=== PATIENT | female | born 1960 | race Caucasian/White ===

== ENCOUNTER 2019-10-10 09:50 | Emergency (ER) | payer BC ==
--- OUTSIDE RECORDS SUMMARY | 2019-10-10 09:55 | XMS REPORT ---
:1960 [facility] Address [address] [place] [address] Dr. Storey [address] [place] [id number] Care Team Providers Name Role Phone Unavailable Unavailable Unavailable Problems This patient has no known problems. Allergies, Adverse Reactions, Alerts This patient has no known allergies or adverse reactions. Medications This patient has no known medications.
--- NOTE | 2019-10-10 10:43 | RAD REPORT ---
EXAM DESCRIPTION: CT - Ct Stroke Brain Wo Cont - 10/10/2019 10:27 am CLINICAL HISTORY: stroke protocol CVA symptomology COMPARISON: No comparisons TECHNIQUE: All CT scans are performed using dose optimization technique as appropriate and may inclu de automated exposure control or mA/KV adjustment according to patient size. FINDINGS: No intracranial hemorrhage, hydrocephalus or extra-axial fluid collection.There is a small 7 x 3 mm area of diminished density seen adjacent to the right frontal horn likely representing suba cute lacunar infarct. No midline shift. The paranasal sinuses and mastoids are clear. The calvarium is intact. IMPRESSION: Suspected small 7 mm subacute lacunar infarct adjacent to the right frontal horn. No ac [place] intracranial hemorrhage suspected. The findings were discussed with Derek Longo in the ER on 10/10/2019 at 10:38 a.m. by telephone.
[2019-10-10 10:50] LABS: Absolute Lymphocytes (CBC) 3.3 K/uL (0.7-4.9); Basophils % 0.7 % (0-1.3); Hematocrit 43.1 % (36.0-45.0); MPV 8.8 fL (7.6-11.3); RBC Red Blood Cell Count 4.71 M/uL (3.86-4.86)
[2019-10-10 10:51] LABS: Protime INR 0.89
[2019-10-10 11:04] LABS: Potassium 3.8 mmol/L (3.5-5.1)
--- NOTE | 2019-10-10 11:07 | RAD REPORT ---
EXAM DESCRIPTION: RAD - Chest Single View - 10/10/2019 10:55 am CLINICAL HISTORY: loss of vision in right eye, trouble speaking Chest pain. COMPARISON: CHEST PA AND LAT 2 VIEW dated 10/02/2013; CHEST SINGLE VIEW dated 07/01/2012 FINDINGS: Portable technique limits examination quality. The lungs are grossly clear. The heart is normal in size. No displaced fractures. IMPRESSION: No acute intrathoracic process suspected.
--- NOTE | 2019-10-10 14:24 | RAD REPORT ---
EXAM DESCRIPTION: MRI - Brain W/Wo Cont - 10/10/2019 2:02 pm CLINICAL HISTORY: Aphasia, stroke-like symptoms COMPARISON: None. TECHNIQUE: Sagittal and axial T1-weighted images were obtained. Axial PD/heavily T2-weighted and T2- FLAIR images were obtained along with axial DWI/ADC mapping sequences. Coronal heavily T2 weighted s equence obtained. Axial and coronal post-contrast T1-weighted images were also obtained. A ml Multi abdullahi contrast following utilized. FINDINGS: No intracranial hemorrhage, mass or acute infarction. There is no edema or shift of midli ne structures. No extra-axial fluid collections. Turner-matter/white matter junction is preserved. Sig nal voids are seen as a normal finding in the major intracranial vessels. No cortical edema or sulcal effacement. No measurable atrophy changes. Ventricles are normal. Patient does have multiple sites of hyperintense T2/IR signal scattered in the cerebral white matter. This i s slightly more prominent the left cerebral hemisphere. This is typical for chronic ischemic change t he would be prominent for the patient's age. Migraine headache or vasculitis etiologies would be poss ible. Demyelinization is possible but not typical. Post-contrast images show normal enhancement. No dural thickening. Mastoid air cells and paranasal sinuses are clear. IMPRESSION: No acute infarction changes present. No hemorrhage, mass or acute intracranial finding. Numerous areas of hyperintense abnormal signal in the cerebral white matter. This is most commonly ch ronic ischemic change with severity greater than expected for patient age.
--- NOTE | 2019-10-10 14:35 | EDPHYS ---
Physician Documentation [facility] Name: Cheryl Dickerson Age: 58 yrs Sex: Female : 1960 Arrival Date: 10/10/2019 Time: 09:52 Bed 25 Private MD: ED Physician Edinson Garcia HPI: 10/10 11:17 This 58 yrs old Female presents to ER via Wheelchair with complaints of ma2 Vision Problem, High Blood Pressure. 11:17 The patient has elevated blood pressure and discovered this at home. Onset: The ma2 symptoms/episode began/occurred suddenly, 1 hour(s) ago. Associated signs and symptoms: Pertinent negatives: headache, nausea, visual changes, vomiting. Severity of symptoms: At its worst the blood pressure was mild, in the emergency department the blood pressure is now normal. The blood pressure problem is resolved. The patient has not experienced similar symptoms in the past. she has sudden visual disturbance of left eye, she describes as if she was looking at a light, lasted for 30 min then resolved. she is now back to normal with no sympotms . Historical: - Allergies: 10:17 Hydrocodone-Acetaminophen; iw - Home Meds: 10:17 rosuvastatin 5 mg oral tab 1 tab once daily [Active]; valsartan 160 mg oral tab 1 tab iw once daily [Active]; Metformin Oral [Active]; nadolol oral oral [Active]; Lexapro Oral [Active]; - PMHx: 10:17 Hyperlipidemia; Hypertension; Endometrosis; iw - PSHx: 10:17 Hernia repair; ankle; iw - Immunization history:: Adult Immunizations. - Coronavirus screen:: The patient has NOT traveled to [place], [place], or [place] in the past 14 days. Proceed with normal triage process as indicated. - Social history:: Patient/guardian denies using alcohol, street drugs, The patient lives with family, Smoking status: . - Family history:: not pertinent. - Ebola Screening: : Patient negative for fever greater than or equal to 101.5 degrees Fahrenheit, and additional compatible Ebola Virus Disease symptoms Patient denies exposure to infectious person Patient denies travel to an Ebola-affected area in the 21 days before illness onset No symptoms or risks identified at this time. ROS: 11:17 Constitutional: Negative for fever, chills, and weight loss. ma2 11:17 All other systems are negative. Exam: 11:17 Constitutional: This is a well developed, well nourished patient who is awake, alert, ma2 and in no acute distress. Head/Face: Normocephalic, atraumatic. Eyes: Pupils equal round and reactive to light, extra-ocular motions intact. Lids and lashes normal. Conjunctiva and sclera are non-icteric and not injected. Cornea within normal limits. Periorbital areas with no swelling, redness, or edema. ENT: Nares patent. No nasal discharge, no septal abnormalities noted. Tympanic membranes are normal and external auditory canals are clear. Oropharynx with no redness, swelling, or masses, exudates, or evidence of obstruction, uvula midline. Mucous membranes moist. Neck: Trachea midline, no thyromegaly or masses palpated, and no cervical lymphadenopathy. Supple, full range of motion without nuchal rigidity, or vertebral point tenderness. No Meningismus. Chest/axilla: Normal chest wall appearance and motion. Nontender with no deformity. No lesions are appreciated. Cardiovascular: Regular rate and rhythm with a normal S1 and S2. No gallops, murmurs, or rubs. Normal PMI, no JVD. No pulse deficits. Respiratory: Lungs have equal breath sounds bilaterally, clear to auscultation and percussion. No rales, rhonchi or wheezes noted. No increased work of breathing, no retractions or nasal flaring. Abdomen/GI: Soft, non-tender, with normal bowel sounds. No distension or tympany. No guarding or rebound. No evidence of tenderness throughout. Skin: Warm, dry with normal turgor. Normal color with no rashes, no lesions, and no evidence of cellulitis. MS/ Extremity: Pulses equal, no cyanosis. Neurovascular intact. Full, normal range of motion. Neuro: Awake and alert, GCS 15, oriented to person, place, time, and situation. Cranial nerves II-XII grossly intact. Motor strength 5/5 in all extremities. Sensory grossly intact. Cerebellar exam normal. Normal gait. Vital Signs: 10:07 BP 136 / 79; Pulse 79; Resp 16; Temp 97.5; Pulse Ox 100% on R/A; Weight 67.59 kg; iw Height 5 ft. 8 in. (172.72 cm); 11:13 BP 159 / 90; Pulse 71; Resp 18; Pulse Ox 99% on R/A; aj1 12:15 BP 147 / 89; Pulse 75; Resp 18; Pulse Ox 99% on R/A; aj1 14:30 BP 107 / 85; Pulse 72; Resp 18; Temp 97.2; Pulse Ox 99% on R/A; wh 10:07 Body Mass Index 22.66 (67.59 kg, 172.72 cm) iw MDM: 10:22 Patient medically screened. ma2 11:17 Differential diagnosis: hypertensive crisis, CVA, intracerebral hemorrhage, ct shows maAlbaro possible stroke, however, because symptoms resolved, she is not a tpa candidates and feroz l get an mri head. 14:32 Data reviewed: vital signs, nurses notes. Counseling: I had a detailed discussion with ma2 the patient and/or guardian regarding: the historical points, exam findings, and any diagnostic results supporting the discharge/admit diagnosis, the presence of at least one elevated blood pressure reading (>120/80) during this emergency department visit, the need for outpatient follow up. Medical screen evaluation completed. EMTALA emergency medical condition absent. Response to treatment: the patient's symptoms have markedly improved after treatment. ED course: mri wnl. 10/10 10:23 Order name: Basic Metabolic Panel; Complete Time: 12:28 10/10 10:23 Order name: CBC with Diff; Complete Time: 12:28 10/10 10:23 Order name: Protime (+inr); Complete Time: 12:28 10/10 10:23 Order name: Ptt, Activated; Complete Time: 12:28 10/10 10:23 Order name: CT Stroke Brain w/o Contrast; Complete Time: 10:48 10/10 10:54 Order name: Glucose, Ancillary Testing; Complete Time: 12:28 [facility] 10/10 10:23 Order name: Stroke CXR 1 View; Complete Time: 12:28 10/10 10:23 Order name: EKG; Complete Time: 10:23 10/10 10:23 Order name: Accucheck; Complete Time: 10:45 10/10 10:23 Order name: Cardiac monitoring; Complete Time: 10:45 10/10 10:23 Order name: EKG - Nurse/Tech; Complete Time: 10:45 10/10 10:23 Order name: IV Saline Lock; Complete Time: 10:45 10/10 10:23 Order name: Labs collected and sent; Complete Time: 10:45 10/10 10:49 Order name: MRI - Brain W/Wo Cont; Complete Time: 14:32 ma2 10/10 10:23 Order name: NPO; Complete Time: 10:45 10/10 10:23 Order name: O2 Per Protocol; Complete Time: 10:45 10/10 10:23 Order name: O2 Sat Monitoring; Complete Time: 10:45 10/10 10:23 Order name: Stroke Swallow Screen; Complete Time: 10:53 aj Administered Medications: No medications were administered Disposition: 10/10/19 14:34 Discharged to Home. Impression: Headache. - Condition is Stable. - Discharge Instructions: General Headache Without Cause. - Prescriptions for Ativan 1 mg Oral Tablet - take 1 tablet by ORAL route every 8 hours As needed; 10 tablet. Reglan 10 mg Oral Tablet - take 1 tablet by ORAL route every 6 hours . take 30 minutes before meals and at bedtime; 100 tablet. - Medication Reconciliation Form, Thank You Letter, Antibiotic Education, Prescription Opioid Use form. - Follow up: Private Physician; When: Tomorrow; Reason: Continuance of care. Signatures: Dispatcher [employer] Lilly De RN RN aj1 Marilynn Bhagat RN RN iw [place], Winsy Edinson Garcia MD MD ma2 Corrections: (The following items were deleted from the chart) 14:58 14:34 10/10/2019 14:34 Discharged to Home. Impression: Headache. Condition is Stable. wh Forms are Medication Reconciliation Form, Thank You Letter, Antibiotic Education, Prescription Opioid Use. Follow up: Private Physician; When: Tomorrow; Reason: Continuance of care. ma2
--- NOTE | 2019-10-10 14:35 | ER ---
Nurse's Notes [facility] Name: Cheryl Dickerson Age: 58 yrs Sex: Female : 1960 Arrival Date: 10/10/2019 Time: 09:52 Bed 25 Private MD: Diagnosis: Headache Presentation: 10/10 10:07 Presenting complaint: Patient states: had a half velasco irregular shaped darkness in iw right field of vision in right eye, occurred about 0800 then she went and had a cigarette and came back in and closed her eyes and it was in both eyes, and had a hard time getting her words out, eye sight has improved but not completely resolved, feels a pain in left eye area, behind eye, also had a high BP reading was 221/110 [employer], recently started on BP medication 2 weeks ago, also c/o dizziness, denies headache. Transition of care: patient was not received from another setting of care. Onset of symptoms was October 10, 2019. Risk Assessment: Do you want to hurt yourself or someone else? Patient reports no desire to harm self or others. Initial Sepsis Screen: Does the patient meet any 2 criteria? No. Patient's initial sepsis screen is negative. Does the patient have a suspected source of infection? No. Patient's initial sepsis screen is negative. Care prior to arrival: None. 10:07 Method Of Arrival: Wheelchair iw 10:07 Acuity: RONNY 2 iw Historical: - Allergies: 10:17 Hydrocodone-Acetaminophen; iw - Home Meds: 10:17 rosuvastatin 5 mg oral tab 1 tab once daily [Active]; valsartan 160 mg oral tab 1 tab iw once daily [Active]; Metformin Oral [Active]; nadolol oral oral [Active]; Lexapro Oral [Active]; - PMHx: 10:17 Hyperlipidemia; Hypertension; Endometrosis; iw - PSHx: 10:17 Hernia repair; ankle; iw - Immunization history:: Adult Immunizations. - Coronavirus screen:: The patient has NOT traveled to [place], [place], or [place] in the past 14 days. Proceed with normal triage process as indicated. - Social history:: Patient/guardian denies using alcohol, street drugs, The patient lives with family, Smoking status: . - Family history:: not pertinent. - Ebola Screening: : Patient negative for fever greater than or equal to 101.5 degrees Fahrenheit, and additional compatible Ebola Virus Disease symptoms Patient denies exposure to infectious person Patient denies travel to an Ebola-affected area in the 21 days before illness onset No symptoms or risks identified at this time. Screenin:54 Patient has been NPO before screening. The patient is alert, able to follow commands. aj1 The patient does not exhibit slurred or garbled speech The patient is not exhibiting difficulty speaking. The patient does not exhibit difficulty understanding words. The patient is able to swallow own secretions with no drooling or need for suction. Patient tolerated one teaspoon of water. No drooling, immediate coughing, gurgling, or clearing of the throat was noted. The patient tolerated 90mL of water. No drooling, immediate coughing, gurgling, or clearing of the throat was noted. The patient passed the bedside swallow screening. Oral medications may be given as ordered. Contact Physician for further diet orders. 11:17 Abuse screen: Denies threats or abuse. Denies injuries from another. Nutritional aj1 screening: No deficits noted. Tuberculosis screening: No symptoms or risk factors identified. 14:00 Fall Risk None identified. wh Assessment: 10:21 Reassessment: Patient transported to CT via wheelchair, accompanied by myself. aj1 10:33 Reassessment: IV initiated, labs drawn, EKG done. aj1 10:35 General: Appears in no apparent distress. comfortable, Behavior is calm, cooperative, aj1 appropriate for age. Pain: Complains of pain in right eye and left eye Pain does not radiate. Pain currently is 5 out of 10 on a pain scale. Quality of pain is described as aching. Neuro: Level of Consciousness is awake, alert, obeys commands, Oriented to person, place, time, situation, Dinkey Operator Slag are equal bilaterally Moves all extremities. Full function Gait is steady, Speech is normal, Facial symmetry appears normal, Pupils are PERRLA, Intact Reports blurred vision headache States that she had a partial loss of vision in both eyes and trouble speaking that has now resolved. . Cardiovascular: Denies chest pain, shortness of breath, Heart tones S1 S2 present Patient's skin is warm and dry. Rhythm is sinus rhythm. Respiratory: Airway is patent Respiratory effort is even, unlabored, Respiratory pattern is regular, symmetrical, Breath sounds are clear bilaterally. GI: No signs and/or symptoms were reported involving the gastrointestinal system. Abdomen is non-distended. : No signs and/or symptoms were reported regarding the genitourinary system. EENT: No signs and/or symptoms were reported regarding the EENT system. Derm: No signs and/or symptoms reported regarding the dermatologic system. Skin is pink, warm \T\ dry. normal. Musculoskeletal: No signs and/or symptoms reported regarding the musculoskeletal system. Circulation, motion, and sensation intact. 10:35 Reassessment: Dr. Garcia at bedside to evaluate patient. aj1 10:44 Reassessment: CXR at bedside. aj1 11:35 Reassessment: Patient appears in no apparent distress at this time. No changes from [facility] previously documented assessment. Patient and/or family updated on plan of care and expected duration. Pain level reassessed. Patient is alert, oriented x 3, equal unlabored respirations, skin warm/dry/pink. 12:49 Reassessment: Patient appears in no apparent distress at this time. No changes from [facility] previously documented assessment. Patient and/or family updated on plan of care and expected duration. Pain level reassessed. Patient is alert, oriented x 3, equal unlabored respirations, skin warm/dry/pink. 14:00 Reassessment: Patient appears in no apparent distress at this time. Patient and/or wh family updated on plan of care and expected duration. Pain level reassessed. Patient is alert, oriented x 3, equal unlabored respirations, skin warm/dry/pink. 14:54 Reassessment: Patient appears in no apparent distress at this time. No changes from previously documented assessment. Patient and/or family updated on plan of care and expected duration. Pain level reassessed. Patient is alert, oriented x 3, equal unlabored respirations, skin warm/dry/pink. Patient states symptoms have improved. Vital Signs: 10:07 BP 136 / 79; Pulse 79; Resp 16; Temp 97.5; Pulse Ox 100% on R/A; Weight 67.59 kg; iw Height 5 ft. 8 in. (172.72 cm); 11:13 BP 159 / 90; Pulse 71; Resp 18; Pulse Ox 99% on R/A; aj1 12:15 BP 147 / 89; Pulse 75; Resp 18; Pulse Ox 99% on R/A; aj1 14:30 BP 107 / 85; Pulse 72; Resp 18; Temp 97.2; Pulse Ox 99% on R/A; wh 10:07 Body Mass Index 22.66 (67.59 kg, 172.72 cm) ED Course: 09:52 Patient arrived in ED. as 10:13 Triage completed. iw 10:22 Lilly Caldwell, RN is Primary Nurse. aj1 10:22 Edinson Garcia MD is Attending Physician. ma2 10:30 CT Stroke Brain w/o Contrast In Process Unspecified. EDMS 10:33 Inserted saline lock: 20 gauge in left antecubital area, using aseptic technique. Blood aj1 collected. 10:33 EKG done, by electro tech. reviewed by Edinson Garcia MD. aj1 11:00 Stroke CXR 1 View In Process Unspecified. EDMS 11:17 No provider procedures requiring assistance completed. aj1 11:17 Patient has correct armband on for positive identification. Bed in low position. Call aj1 light in reach. Side rails up X 1. 13:53 MRI - Brain W/Wo Cont In Process Unspecified. EDMS 14:00 Arm band placed on. 14:56 IV discontinued, intact, bleeding controlled, No redness/swelling at site. Administered Medications: No medications were administered Outcome: 14:34 Discharge ordered by . ma2 14:55 Discharged to home ambulatory, with family. 14:55 Condition: stable 14:55 Discharge instructions given to patient, family, Instructed on discharge instructions, follow up and referral plans. no drinking with medication, no driving heavy equipment, medication usage, POC Demonstrated understanding of instructions, follow-up care, medications, POC Prescriptions given X 2. 14:58 Patient left the ED. Signatures: Dispatcher [employer] EDKY Lilly Caldwell, RN RN aj1 Rosy Reyes Irene, AIDA PARRA Dina Pastor Edinson Garcia MD MD ma2 Corrections: (The following items were deleted from the chart) 10:18 10:07 Pulse 79bpm; Resp 16bpm; Pulse Ox 100% RA; Temp 97.5F; iw iw 12:48 10:35 Reassessment: Patient appears in no apparent distress at this time. No changes aj1 from previously documented assessment. Patient and/or family updated on plan of care and expected duration. Pain level reassessed. Patient is alert, oriented x 3, equal unlabored respirations, skin warm/dry/pink. aj1
--- NOTE | 2019-10-10 15:07 | EKG ---
Test Date: 2019-10-10 Test Time: 10:33:52 Administration Vice President: MORENITA MEASUREMENT RESULTS: Intervals: Rate: 73 DC: 172 QRSD: 90 QT: 402 QTc: 442 [place]: P: 60 DC: 172 QRS: 62 T: 55 INTERPRETIVE STATEMENTS: Normal sinus rhythm Nonspecific ST abnormality Abnormal ECG Compared to ECG 07/02/2012 06:57:55 ST (T wave) deviation now present Electronically Signed On 10-10-19 15:06:47 MACHINE CHOCOLATE MOLDER by Isidro Larios
[2019-10-10 15:09] VITALS: O2SAT 99
[2019-10-10 15:11] VITALS: BP 107/85; TEMP 97.2
== END 2019-10-10 14:58 | disposition home or self-care (01) ==
LOC: ER 09:50
DX: R51 Headache (principal); I10 Essential (primary) hypertension; E78.5 Hyperlipidemia, unspecified; Z88.5 Allergy status to narcotic agent
CPT/HCPCS: 93005; 85025; 80048; 36415; 85610; 82947; 85730; 70450; 71045; 70553; 99284; A9577